=== PATIENT | male | born 1975 | race Caucasian/White ===

== ENCOUNTER 2021-06-27 12:41 | Outpatient (CLI) | payer BC | END 2021-06-27 12:42 | disposition home or self-care (01) | LOC: CT 12:41 | PROVIDERS: ATTEND Specialist | DX: C20 Malignant neoplasm of rectum (principal) | CPT/HCPCS: 74177 ==

== ENCOUNTER 2021-06-27 14:02 | Outpatient (CLI) | payer BC ==
[2021-06-28 11:04] LABS: SARS-CoV-2 PCR by NAA Not Detected (NotDetected)
== END 2021-06-27 14:03 | disposition home or self-care (01) ==
LOC: LABBT 14:02
PROVIDERS: ATTEND Specialist
DX: Z01.812 Encounter for preprocedural laboratory examination (principal); C20 Malignant neoplasm of rectum; Z20.822 Contact with and (suspected) exposure to COVID-19
CPT/HCPCS: 36415; 74177; 80053; 82378; 85025; U0003; U0005

== ENCOUNTER 2021-06-27 14:30 | Inpatient (IN) | payer BC ==
[2021-06-30] MEDS ORDERED: Ketorolac Tromethamine 30 MG/ML VIAL ONE ×2 (14:16→21:44)
[2021-06-30] MEDS ORDERED: Acetaminophen 500 MG TAB ONE (14:16)
[2021-06-30] MEDS ORDERED: cefOXitin Sodium/Dextrose 2 GM/50 ML BAG ONE ×2 (14:16→20:00)
[2021-06-30] MEDS ORDERED: Midazolam HCl 2 mg/2 ml Vial ONE ×2 (16:33→17:03)
[2021-06-30] MEDS ORDERED: Lidocaine 1% w/Epinephrine 1:100K 20 ML VIAL ONE ×2 (16:55→21:17)
[2021-06-30] MEDS ORDERED: Bupivacaine 0.25% 10 ML VIAL ONE ×2 (16:55)
[2021-06-30] MEDS ORDERED: HYDROmorphone 0.5 MG/0.5 ML SYRINGE ONE ×2 (17:29→22:32)
[2021-06-30] MEDS ORDERED: Fentanyl 100 MCG/2 ML VIAL ONE ×3 (17:29→22:53)
[2021-06-30] MEDS ORDERED: Lidocaine 1% PF 5 ML VIAL ONE (17:38)
[2021-06-30] MEDS ORDERED: PROPOFOL 200 MG/20 ML VIAL ONE (17:38)
[2021-06-30] MEDS ORDERED: Dexamethasone 20 MG/5 ML VIAL ONE (17:38)
[2021-06-30] MEDS ORDERED: Glycopyrrolate 0.2 MG/ML 5 ML SYRINGE ONE (17:38)
[2021-06-30] MEDS ORDERED: Rocuronium Bromide 10 MG/ML (10ML VIAL) ONE (17:38)
[2021-06-30] MEDS ORDERED: Ondansetron PF 4 MG/2 ML Vial ONE (17:38)
[2021-06-30] MEDS ORDERED: Promethazine HCl 25 MG/ML VIAL IM PRN ×2 (18:16→21:58)
[2021-06-30] MEDS ORDERED: hydrALAZINE 20 MG/ML VIAL SLOW IVP PRN (18:16)
[2021-06-30] MEDS ORDERED: Ondansetron PF 4 MG/2 ML Vial IVP PRN (18:16)
[2021-06-30] MEDS ORDERED: Lorazepam 2 MG/ML VIAL SLOW IVP PRN (18:16)
[2021-06-30] MEDS ORDERED: Morphine 4 MG/ML VIAL SLOW IVP PRN (18:33)
[2021-06-30] MEDS ORDERED: Ondansetron HCl/PF 4 MG/2 ML Vial IVP PRN (21:55)
[2021-06-30] MEDS ORDERED: HYDROmorphone 2 MG/ML VIAL SLOW IVP PRN (21:55)
[2021-06-30] MEDS ORDERED: Promethazine HCl 25 MG/ML VIAL IVPB PRN (21:58)
[2021-06-30] MEDS: Ketorolac Tromethamine 30 MG/ML VIAL IVP SCH (22:06)
[2021-06-30] MEDS ORDERED: Meperidine HCl/PF 25 MG/ML VIAL ONE (22:32)
[2021-06-30] MEDS ORDERED: Metoprolol Tartrate 5 MG/5 ML VIAL ONE (23:02)
[2021-07-01] MEDS: Ketorolac Tromethamine 30 MG/ML VIAL IVP SCH ×6 (00:30→23:58)
[2021-07-01] MEDS: Morphine 4 MG/ML VIAL SLOW IVP PRN ×6 (00:31→14:35)
[2021-07-01] MEDS: D5 1/2 NS w/20 mEq KCL 1,000 ML IV SCH ×5 (00:32→21:12)
[2021-07-01] MEDS: Famotidine 20 MG TAB PO SCH ×3 (00:55→19:25)
[2021-07-01] MEDS: Famotidine/PF 20 mg/2ml Vial SLOW IVP SCH ×3 (00:55→21:12)
[2021-07-01 01:22] VITALS: BMI 24.5
[2021-07-01 05:11] LABS: #Lymphocytes 0.8 thou/uL (1.20-3.40); #Monocytes 1.8 thou/uL (0.11-0.59); #Neutrophils 15.9 thou/uL (1.40-6.50); %Basophils 0.1 % (0.0-1.0); %Eosinophils 0.2 % (0.0-10.0); %Lymphocytes 4.4 % (21.0-51.0); %Monocytes 9.7 % (0.0-10.0); %Neutrophils 85.6 % (42.0-75.0); Hemoglobin 14.5 g/dL (14.0-18.0); Mean Corpuscular HGB CONC 33.9 g/dL (32.0-36.0); Mean Corpuscular Hemoglobin 32.5 pg (27.0-31.0); Mean Platelet Volume 6.7 fL (7.4-10.4); Platelet Count 306 thou/uL (130-400); Red Blood Cell (RBC) Count 4.45 mill/uL (4.70-6.10); White Blood Cell (WBC) Count 18.5 thou/uL (4.8-10.8)
[2021-07-01 05:31] LABS: Anion Gap 12 mmol/L (10-20); BUN (Urea Nitrogen) 7 mg/dL (8.9-20.6); Calc. Creatinine Clearance 109 mL/min (70-130); Calcium 9.3 mg/dL (7.8-10.44); Carbon Dioxide 25 mmol/L (22-29); Chloride 105 mmol/L (98-107); Glucose 151 mg/dL (70-105); Potassium 4.5 mmol/L (3.5-5.1); Sodium 137 mmol/L (136-145)
[2021-07-01] MEDS: Enoxaparin Sodium 40 MG/0.4 ML SYRINGE SC SCH (08:42)
[2021-07-01] MEDS ORDERED: HYDROcodone/Acetaminophen 7.5/325 mg Tablet PO PRN ×2 (18:01→18:02)
[2021-07-02] MEDS: Ketorolac Tromethamine 30 MG/ML VIAL IVP SCH ×4 (05:15→23:58)
[2021-07-02 05:25] LABS: #Lymphocytes 2.4 thou/uL (1.20-3.40); #Monocytes 1.3 thou/uL (0.11-0.59); #Neutrophils 7.5 thou/uL (1.40-6.50); %Basophils 0.2 % (0.0-1.0); %Eosinophils 0.4 % (0.0-10.0); %Lymphocytes 21.5 % (21.0-51.0); %Monocytes 11.4 % (0.0-10.0); %Neutrophils 66.5 % (42.0-75.0); Hemoglobin 12.7 g/dL (14.0-18.0); Mean Corpuscular HGB CONC 33.2 g/dL (32.0-36.0); Mean Corpuscular Hemoglobin 32.6 pg (27.0-31.0); Platelet Count 261 thou/uL (130-400); RBC Distribution Width 11.3 % (11.5-14.5); Red Blood Cell (RBC) Count 3.89 mill/uL (4.70-6.10); White Blood Cell (WBC) Count 11.3 thou/uL (4.8-10.8)
[2021-07-02] MEDS: Famotidine 20 MG TAB PO SCH ×2 (09:17→20:17)
[2021-07-02] MEDS: D5 1/2 NS w/20 mEq KCL 1,000 ML IV SCH ×2 (09:18→20:13)
[2021-07-02] MEDS: Enoxaparin Sodium 40 MG/0.4 ML SYRINGE SC SCH (09:18)
[2021-07-02] MEDS: Acetaminophen 325 MG TAB PO PRN ×3 (09:21→20:16)
[2021-07-02] MEDS: Famotidine/PF 20 mg/2ml Vial SLOW IVP SCH ×2 (09:22→20:11)
[2021-07-03] MEDS: D5 1/2 NS w/20 mEq KCL 1,000 ML IV SCH (05:00)
[2021-07-03] MEDS: Ketorolac Tromethamine 30 MG/ML VIAL IVP SCH ×2 (05:01→11:21)
[2021-07-03] MEDS: Acetaminophen 325 MG TAB PO PRN (08:25)
[2021-07-03] MEDS: Famotidine 20 MG TAB PO SCH (08:26)
[2021-07-03] MEDS: Famotidine/PF 20 mg/2ml Vial SLOW IVP SCH (08:27)
[2021-07-03] MEDS: Enoxaparin Sodium 40 MG/0.4 ML SYRINGE SC SCH (08:27)
[2021-07-03 12:05] VITALS: BP 148/87; TEMP 98.1
== END 2021-07-03 13:18 | disposition home or self-care (01) | DRG 330 ==
LOC: SURG A 06-30 12:41 → EDSTATUS 06-30 14:30 → SURG A 06-30 23:50
PROVIDERS: ADMIT Specialist; ATTEND Specialist
PROC: 0DTP0ZZ Resection of Rectum, Open Approach (ICD-10-PCS; principal; 2021-06-30)
PROC: 0DBN0ZZ Excision of Sigmoid Colon, Open Approach (ICD-10-PCS; 2021-06-30)
DX: C20 Malignant neoplasm of rectum (principal); C78.89 Secondary malignant neoplasm of other digestive organs; C77.2 Secondary and unspecified malignant neoplasm of intra-abdominal lymph nodes; Z20.822 Contact with and (suspected) exposure to COVID-19; F17.210 Nicotine dependence, cigarettes, uncomplicated; Z79.899 Other long term (current) drug therapy; Z83.3 Family history of diabetes mellitus; Z82.49 Family history of ischemic heart disease and other diseases of the circulatory system; Z01.812 Encounter for preprocedural laboratory examination
CPT/HCPCS: 36415; 36416; 74177; 80048; 80053; 82378; 85025; 88309; A4649; C1776; J0694; J1100; J1170; J1650; J1885; J2175; J2250; J2270; J2405; J2704; J3010; J3480; Q9967; S0020; S0028; U0003; U0005

== ENCOUNTER 2021-07-21 12:50 | Outpatient (CLI) | payer BC ==
[2021-07-21 14:18] LABS: #Basophils 0.1 10x3/uL (0.0-0.2); #Eosinphils 0.1 10x3/uL (0.0-0.5); #Neutrophils 4.6 10x3/uL (1.5-8.4); %Basophils 0.6 % (0.0-2.0); %Eosinophils 1.1 % (0.0-6.0); %Lymphocytes 29.1 % (18.0-47.0); %Monocytes 11.8 % (0.0-10.0); Hemoglobin 14.1 g/dL (13.5-17.5); Mean Corpuscular Hemoglobin 30.7 pg (27.0-33.0); Mean Corpuscular Volume 92.8 fl (81.2-95.1); Mean Platelet Volume 9.9 fl (7.4-10.4); Platelet Count 385 10x3/uL (150-450); RBC Distribution Width 12.2 % (11.5-14.5); White Blood Cell (WBC) Count 8.1 10x3/uL (3.5-10.5)
[2021-07-21 14:45] LABS: Anion Gap 14 mmol/L (10-20); BUN (Urea Nitrogen) 11 mg/dL (8.9-20.6); Calc. Creatinine Clearance 0 mL/min (70-130); Calcium 9.7 mg/dL (7.8-10.44); Carbon Dioxide 26 mmol/L (22-29); Chloride 104 mmol/L (98-107); Glucose 92 mg/dL (70-105); Potassium 4.1 mmol/L (3.5-5.1); Sodium 140 mmol/L (136-145)
[2021-07-22 11:36] LABS: SARS-CoV-2 PCR by NAA Not Detected (NotDetected)
== END 2021-07-21 12:51 | disposition home or self-care (01) ==
LOC: LABBT 12:50
PROVIDERS: ATTEND Specialist
DX: Z01.812 Encounter for preprocedural laboratory examination (principal); C20 Malignant neoplasm of rectum; Z20.822 Contact with and (suspected) exposure to COVID-19
CPT/HCPCS: 80048; 85025; U0003; U0005

== ENCOUNTER 2021-07-21 14:04 | Outpatient (CLI) | payer BC | END 2021-07-21 14:05 | disposition home or self-care (01) | LOC: BICCT 14:04 → CT 14:05 | PROVIDERS: ATTEND Internal Medicine Hematology & Oncology | DX: C20 Malignant neoplasm of rectum (principal) | CPT/HCPCS: 71260 ==

== ENCOUNTER 2021-07-26 10:57 | Day surgery (SDC) | payer BC ==
[2021-07-25 10:50] VITALS: BMI 35.2
[2021-07-26] MEDS ORDERED: ceFAZolin 2 GM/DEX 5% 100 ML BAG ONE (11:32)
[2021-07-26] MEDS ORDERED: Acetaminophen 500 MG TAB ONE (11:32)
[2021-07-26] MEDS ORDERED: Ketorolac Tromethamine 30 MG/ML VIAL ONE ×2 (11:32→11:33)
[2021-07-26] MEDS ORDERED: Bupivacaine 0.25% 10 ML VIAL ONE ×3 (13:19→13:21)
[2021-07-26] MEDS ORDERED: Xylocaine 1% w/ Epi 1:100K 10 ML VIAL ONE ×2 (13:20→13:27)
[2021-07-26] MEDS ORDERED: Fentanyl 100 MCG/2 ML VIAL ONE (13:29)
[2021-07-26] MEDS ORDERED: Midazolam HCl 2 mg/2 ml Vial ONE (13:36)
[2021-07-26] MEDS ORDERED: PROPOFOL 200 MG/20 ML VIAL ONE (13:48)
[2021-07-26] MEDS ORDERED: Ondansetron PF 4 MG/2 ML Vial ONE (13:48)
[2021-07-26] MEDS ORDERED: Dexamethasone 20 MG/5 ML VIAL ONE (13:48)
[2021-07-26] MEDS ORDERED: Lidocaine 1% PF 5 ML VIAL ONE (13:48)
== END 2021-07-26 15:40 | disposition home or self-care (01) ==
LOC: SDC 10:57
PROVIDERS: ATTEND Specialist
PROC: 02HV33Z Insertion of Infusion Device into Superior Vena Cava, Percutaneous Approach (ICD-10-PCS; principal; 2021-07-26)
DX: C20 Malignant neoplasm of rectum (principal); F17.210 Nicotine dependence, cigarettes, uncomplicated; Z91.038 Other insect allergy status
CPT/HCPCS: 71045; C1788; J1100; J1642; J1885; J2250; J2405; J2704; J3010; S0020

== ENCOUNTER 2022-02-21 08:50 | Outpatient (CLI) | payer BC ==
[2022-02-21] MEDS ORDERED: Iopamidol 370 76% 100 ML VIAL ONE (11:35)
== END 2022-02-21 08:51 | disposition home or self-care (01) ==
LOC: CT 08:50
PROVIDERS: ATTEND Internal Medicine Hematology & Oncology
DX: C20 Malignant neoplasm of rectum (principal); Z98.890 Other specified postprocedural states
CPT/HCPCS: 71260; 74177; Q9967

== ENCOUNTER 2022-08-14 08:56 | Outpatient (CLI) | payer BC ==
[2022-08-14] MEDS ORDERED: Iopamidol 370 76% 100 ML VIAL ONE (11:13)
== END 2022-08-14 08:57 | disposition home or self-care (01) ==
LOC: CT 08:56
PROVIDERS: ATTEND Internal Medicine Hematology & Oncology
DX: C20 Malignant neoplasm of rectum (principal); Z98.890 Other specified postprocedural states
CPT/HCPCS: 71260; 74177

== ENCOUNTER 2023-01-30 08:02 | Outpatient (CLI) | payer BC ==
[2023-01-30] MEDS ORDERED: Iopamidol 370 76% 100 ML VIAL ONE (09:02)
== END 2023-01-30 08:03 | disposition home or self-care (01) ==
LOC: CT 08:02
PROVIDERS: ATTEND Internal Medicine Hematology & Oncology
DX: C20 Malignant neoplasm of rectum (principal); R74.01 Elevation of levels of liver transaminase levels
CPT/HCPCS: 71260; 74177; Q9967

== ENCOUNTER 2023-12-28 08:35 | Outpatient (CLI) | payer BC ==
[2023-12-28] MEDS ORDERED: Iopamidol 370 76% 100 ML VIAL ONE (12:06)
== END 2023-12-28 08:36 | disposition home or self-care (01) ==
LOC: CT 08:35
PROVIDERS: ATTEND Internal Medicine Hematology & Oncology
DX: C20 Malignant neoplasm of rectum (principal)
CPT/HCPCS: 71260; 74177; Q9967

== ENCOUNTER 2024-06-13 08:29 | Outpatient (CLI) | payer BC ==
[2024-06-13] MEDS ORDERED: Iopamidol 370 76% 100 ML VIAL ONE (12:10)
== END 2024-06-13 08:30 | disposition home or self-care (01) ==
LOC: BICCT 08:29
PROVIDERS: ATTEND Internal Medicine Hematology & Oncology
DX: C20 Malignant neoplasm of rectum (principal)
CPT/HCPCS: 71260; 74177; Q9967

== ENCOUNTER 2025-06-15 07:40 | Outpatient (CLI) | payer BC | END 2025-06-15 07:41 | disposition home or self-care (01) | LOC: CT 07:40 | PROVIDERS: ATTEND Internal Medicine Hematology & Oncology | DX: C20 Malignant neoplasm of rectum (principal); R74.01 Elevation of levels of liver transaminase levels; F10.10 Alcohol abuse, uncomplicated | CPT/HCPCS: 71260; 74177 ==